=== PATIENT | female | born 1990 | race Caucasian/White ===

== ENCOUNTER 2021-11-18 07:28 | Inpatient (IN) ==
[2021-11-18] MEDS ORDERED: OXYTOCIN 30 UNITS/500 ML BAG IV PRN ×2 (07:44)
[2021-11-18 08:00] LABS: Hematocrit (blood only) 34.2 % (37-47); Hemoglobin 11.2 g/dL (12.0-16.0); Mean Corpuscular Hemoglobin 28.1 pg (25-34); Mean Corpuscular Hgb Conc 32.7 g/dL (32-36); Mean Corpuscular Volume 85.9 fL (80-100); Mean Platelet Volume 10.2 fL (7.4-10.4); Platelet Count 222 K/uL (130-400); RDW Coefficient of Variation 14.3 % (11.5-14.5); RDW Standard Deviation 44.4 fL (36.4-46.3); Red Blood Count 3.98 M/uL (4.2-5.4); White Blood Count 7.81 K/uL (4.8-10.8)
[2021-11-18] MEDS: LACTATED RINGER'S 1,000 ML IV PRN ×5 (08:39→20:47)
--- NOTE | 2021-11-18 09:25 | History & Physical Report ---
Date of Service November 18, 2021 Assessment & Plan (1) Encounter for induction of labor: Plan: 31-year-old w/ complicated by BMI >40, presenting to L&D at 40.2 WGA for IOL postdates . * GBS-, RI, Rh+ * Admit to L&D * NPO except sips and chips * Pitocin PRN * Pt. open to epidural * Maintenance IVF: Lactated Ringer's at 125 mL * Continuous electronic heart monitoring * Full Code * Anticipate Admission and Anticipated Discharge Date Admission Date: November 18, 2021 History of Present Illness Primary Care Provider: AYAD Lobato Flaca is a 31 y/o female primigravida currently at 40.1 WGA with an RICHIE 11/16/2021 as determined by LMP who is here for induction of labor. Her was complicated by obesity, with BMI >40 at start of . No contractions; + movement; no fluid loss; + bloody show (from catheter removal). Had regular appointments with OB. Labs: 11/18/2021 Blood type: A+ Antibody screen: Negative H.2 Hct: 34.2% WBC: 7.81 Plt: 222 Rubella: Immune RPR: Nonreactive Gonorrhea: Not detected Chlamydia: Not detected HIV: Negative HbSAg: Negative GBS: Negative Other screens: cff-DNA: Low risk for trisomies 13, 18, 21, monosomy X, or triploidy. Low risk for 22q11.2 deletion syndrome CF: Negative SMA: Negative Allergies Allergy/AdvReac Type Severity Reaction Status Date / Time albuterol Allergy Unknown Rash Verified 11/18/21 07:52 bupropion [From Wellbutrin] Allergy Unknown Unknown Verified 11/18/21 07:52 Home Medications Medication Instructions Recorded Confirmed Type escitalopram oxalate 10 mg tablet 10 mg PO DAILY 10/27/21 11/18/21 History (Lexapro) prenat.vits,evette,[id number] 1 tab PO DAILY 10/27/21 11/18/21 History cephalexin 500 mg capsule 500 mg PO BID 10 Days #20 cap 11/15/21 11/15/21 Rx Patient History Medical History Anxiety on lexapro Chronic upper back pain Depression Lexapr 10mg PO daily Endometriosis dx in 2013 Epistaxis History of tobacco use stopped smoking in March 2021 Mood disorder Morbid obesity due to excess calories Paronychia of left middle finger Tobacco use Surgical History (Updated 11/18/21 @ 07:51 by Laurie Rowland RN) H/O exploratory laparotomy 2013 and 2018- due to endometriosis Hx of tonsillectomy as child Lymphedema of upper extremity following lymphadenectomy right neck lymph nodes removed S/P appendectomy at age 20 [place] teeth extracted as teenager Family History Grandfather (Maternal) Leukemia Father Hyperlipemia Depression Mother Depression Grandmother (Maternal) Multiple sclerosis Other Polycythemia vera Denies family history of Ovarian cancer Breast cancer Colorectal cancer Social History Smoking Status: Former smoker Tobacco Type: E-cigarettes / Vaping Age Quit Using Tobacco: 30; Second Hand Exposure: No; Hx Alcohol Use: No Hx Substance Use: No Preferred Language: Latvian Communication Ability: Effective Visual Impairment: No Limitations Hearing Ability: Normal Squad Sergeant Required: No Beliefs That Will Affect Care: None marital status: marital status details: Gerardo Lares (30) [phone] Current Living Situation: Spouse Current Living Situation Comment: lives with spouse, cats-spouse changing litter current occupational status: employed 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 No acute distress. Cardiac: Regular rate and rhythm, no murmurs/rubs/gallops. Respiratory: Clear to auscultation bilaterally a/p, no wheezes/rales/rhonchi. No increased work of breathing. Symmetrical chest rise. No respiratory distress. Pelvic: Dilation 3 cm; Effacement 75%; Station -[address] Squires Lower Extremities: No lower extremity edema or swelling. No deep calf pain. Norma's negative bilaterally Baseline: 130 bpm Variability: Moderate Accelerations: 10+ x20 minutes Decelerations: None Results & Data ([facility]) Vital Signs (Past 12 Hours) Vital Signs Temp Pulse Resp BP 11/18/21 08:48 89 111/63 11/18/21 07:55 36.5 C 20 11/18/21 07:37 87 112/69 Supervising Physician Co-Signing Physician Notes Resident Physician Supervision Note: I interviewed and examined the patient. Discussed with Dr. Ortega and agree with findings and plan as documented in the note. Any exceptions or clarifications are listed here: 31 y/o G1 at 40 2/7 wga presents for eIOL. +FM and bloody discharge, denies LOF, VB. PNI: Obesity, anx depr. VSS, Fetus cat 1 - 130/mod/+accel/-decel, toco irreg ctx. 3/75/-2, ceph confirmed by BSUS. GBS neg. Will start pit, plan arom when able, epidural prn Documented By: Alona Squires MD Resident Activity Tracking Resident Involvement: Resident Care Provided Care Provided: Adult Hospital Medicine
[2021-11-18] MEDS: cephALEXin 500 MG CAP PO SCH ×2 (11:32→21:33)
[2021-11-18] MEDS ORDERED: ePHEDrine sulfate 50 MG/ML AMP ONE (13:12)
[2021-11-18] MEDS ORDERED: fentaNYL citrate 100 MCG/2 ML VIAL ONE ×2 (13:13→22:35)
[2021-11-18] MEDS ORDERED: BUPIVACAINE 0.25% 30 ML VIAL ONE (13:13)
[2021-11-18] MEDS ORDERED: SODIUM CHLORIDE 0.9% INJ 10 ML VIAL ONE (13:13)
[2021-11-18] MEDS ORDERED: fentaNYL 2MCG/ML ROPIVACAINE 1.25MG/ML 100 ML BAG EPI ONE (13:13)
--- NOTE | 2021-11-18 13:28 | Labor Progress Brief Note ---
Date of Service November 18, 2021 Subjective People starting to feel some ctx Assessment & Plan (1) Encounter for induction of labor: Plan: 31 y/o G1 at 40 2/7 wga presents for eIOL VSS Fetus cat 1 labor - pit at 14, pt desires epidural before I arom so will arrange for this GBS neg epidural prn Admission and Anticipated Discharge Date Admission Date: November 18, 2021 Physical Exam Genitourinary: Manual OB Exam: + cervical dilation (3-4), + cervical effacement 70% and + station -2 OB Exam Monitor Tracing: + external FHT monitor used, + external uterine monitor used (irreg) and + category I (130/mod/+accel/-decel) Results & Data ([facility]) Vital Signs (Past 12 Hours) Vital Signs Temp Pulse Resp BP 11/18/21 12:49 81 107/59 L 11/18/21 11:51 129 H 128/57 L 11/18/21 11:00 97.9 F 20 11/18/21 10:52 86 112/57 L 11/18/21 10:50 82 113/57 L 11/18/21 09:49 86 112/58 L 11/18/21 08:48 89 111/63 11/18/21 07:55 97.7 F 20 11/18/21 07:37 87 112/69 Coding Level of Care Code None Diagnoses Encounter for induction of labor Z34.90
--- NOTE | 2021-11-18 13:38 | Anesthesiology Consultation ---
Date of Service November 18, 2021 Assessment & Plan (1) Encounter for pre-operative examination: Chart Review Chart Review: Acceptable Risk for Surgery and Patient NOT seen in Pre Admission Testing Consults Requested none History Height/Weight Height: 5 ft 5 in Weight: 125.645 kg Allergies Allergy/AdvReac Type Severity Reaction Status Date / Time albuterol Allergy Unknown Rash Verified 11/18/21 07:52 bupropion [From Wellbutrin] Allergy Unknown Unknown Verified 11/18/21 07:52 Medications Home Medications Medication Instructions Recorded Confirmed Last Taken escitalopram oxalate 10 mg tablet 10 mg PO DAILY 10/27/21 11/18/21 11/17/21 21:00 (Lexapro) prenat.vits,evette,[id number] 1 tab PO DAILY 10/27/21 11/18/21 Unknown cephalexin 500 mg capsule 500 mg PO BID 10 Days #20 cap 11/15/21 11/15/21 11/17/21 12:00 Active Medications Generic Name Dose Route Start Last Admin Trade Name Freq PRN Reason Stop Dose Admin Cephalexin HCl 500 mg 11/18/21 11:15 11/18/21 11:32 Cephalexin 500 Mg Cap PO 11/25/21 11:14 500 mg BID BEKAH Administration Oxytocin 30 units in 500 mls @ 14 mls/hr 11/18/21 07:44 11/18/21 12:12 Pitocin IV 11/20/21 07:43 0.84 units/hr .Q24H PRN 14 mls/hr Labor Induction/Augmentation Titration Protocol 0.84 UNITS/HR Lactated Ringer's 1,000 mls @ 125 mls/hr 11/18/21 07:44 11/18/21 13:38 Lr IV 11/20/21 07:43 125 mls/hr .Q8H PRN Administration L&D Protocol Protocol NPO Date Last Intake of Fluids: 11/18/21 Time Last Intake of Fluids: 08:00 Date Last Intake of Solids: 11/18/21 Time Last Intake of Solids: 08:00 Past Medical History Medical History Anxiety on lexapro Chronic upper back pain Depression Lexapr 10mg PO daily Endometriosis dx in 2013 Epistaxis History of tobacco use stopped smoking in March 2021 Mood disorder Morbid obesity due to excess calories Paronychia of left middle finger Tobacco use Exercise / Class Metabolic Activity III < 4 Walking/Shop/Light housework Past Family History Family History Grandfather (Maternal) , 75 Leukemia Father Hyperlipemia Depression Mother Depression Grandmother (Maternal) Multiple sclerosis Other Polycythemia vera Denies family history of Ovarian cancer Breast cancer Colorectal cancer Past Surgical History Surgical History History of laparoscopy 2013 and 2018- endometriosis, lysis of adhesions Hx of tonsillectomy as child Lymphedema of upper extremity following lymphadenectomy right neck lymph nodes removed S/P appendectomy at age 20 [place] teeth extracted as teenager Social History Smoking Status: Former smoker tobacco type: e-cigarettes Hx Alcohol Use: No Alcohol type: wine Hx Substance Use: No substance use type: does not use Physical Exam Vital Signs Last Vital Signs Temp 36.6 C 11/18/21 11:00 Pulse 83 11/18/21 13:28 Resp 20 11/18/21 11:00 BP 107/59 L 11/18/21 12:49 Pulse Ox 100 11/18/21 13:28 Testing Laboratory Results 11/18/21 07:49 Blood Type A Positive 11/18/21 07:49 Antibody Screen NEGATIVE 11/18/21 07:49
[2021-11-18] MEDS ORDERED: NALBUPHINE HCL INJ 10 MG/ML AMP IV PRN (14:52)
[2021-11-18] MEDS ORDERED: ONDANSETRON INJ 2 MG/ML 2 ML VIAL IV PRN (14:52)
[2021-11-18] MEDS ORDERED: fentaNYL 2MCG/ML ROPIVACAINE 1.25MG/ML 100 ML BAG EPI PRN (14:52)
[2021-11-18] MEDS ORDERED: NALOXONE HCL 0.4 MG/1 ML VIAL/CARP IV PRN (14:52)
[2021-11-18] MEDS ORDERED: diphenhydrAMINE 50 MG/ML VIAL IV PRN (14:52)
[2021-11-18] MEDS ORDERED: NALOXONE HCL 1 MG in SODIUM CHLORIDE 0.9% 1000ML 1,000 ML IV PRN (14:52)
[2021-11-18] MEDS: ePHEDrine sulfate 50 MG/ML AMP IV PRN ×3 (15:17→21:30)
--- NOTE | 2021-11-18 15:26 | Labor Progress Brief Note ---
Date of Service November 18, [address] Assessment & Plan (1) Encounter for induction of labor: Plan: 31 y/o G1 at 40 2/7 wga presents for eIOL VSS Fetus cat 1 labor - pit at 16, now comfortable w/ epidural. Attempted arom however difficult to tell if completed as not much fluid, and while laying on back pt began feeling nauseous and decel began. FSE applied due to difficulty monitoring with repositioning, IVF, O2, pit d/c'd. Ephedrin also given due to hypotension, pt feels much better and tracing improved. Will allow to recover, and restart pit again, FSE now in place so likely some form of rupture was completed GBS neg epidural in place Admission and Anticipated Discharge Date Admission Date: November 18, 2021 Physical Exam Genitourinary: Manual OB Exam: + cervical dilation (3-4), + cervical efface ment 70% and + station -2 OB Exam Monitor Tracing: + external FHT monitor used, + external uterine monitor used (q4-6) and + category I (130/mod/+accel/- decel) Results & Data ([facility]) Vital Signs (Past 12 Hours) Vital Signs Temp Pulse Resp BP Pulse Ox 11/18/21 15:19 83 139/78 11/18/21 15:18 84 100 11/18/21 15:17 187 H 90/43 L 11/18/21 15:15 102 H 94 11/18/21 15:13 87 100 11/18/21 15:12 74 96/53 L 11/18/21 15:08 95 H 99 11/18/21 15:07 89 108/60 11/18/21 15:03 83 93 11/18/21 15:01 82 107/60 11/18/21 14:58 80 100 11/18/21 14:57 82 106/63 90 11/18/21 14:53 90 100 11/18/21 14:52 93 H 126/58 L 11/18/21 14:51 81 92 11/18/21 14:48 83 100 11/18/21 14:46 91 H 104/57 L 11/18/21 14:43 82 100 11/18/21 14:40 86 102/58 L 11/18/21 14:38 95 H 101/59 L 100 11/18/21 14:36 84 105/58 L 11/18/21 14:34 96 H 102/62 11/18/21 14:33 98 H 100 11/18/21 14:32 90 104/60 11/18/21 14:30 82 101/63 11/18/21 14:28 82 102/57 L 100 11/18/21 14:26 87 102/58 L 11/18/21 14:24 88 107/59 L 11/18/21 14:23 86 100 11/18/21 14:22 90 105/56 L 11/18/21 14:20 102 H 102/52 L 11/18/21 14:18 94 H 100 11/18/21 14:17 94 H 119/60 11/18/21 14:13 86 99 11/18/21 14:08 75 99 11/18/21 14:03 84 100 11/18/21 13:58 86 100 11/18/21 13:53 104 H 100 11/18/21 13:49 110 H 131/69 11/18/21 13:48 122 H 100 11/18/21 13:43 88 100 11/18/21 13:38 84 100 11/18/21 13:33 81 100 11/18/21 13:28 83 100 11/18/21 12:49 81 107/59 L 11/18/21 11:51 129 H 128/57 L 11/18/21 11:00 97.9 F 20 11/18/21 10:52 86 112/57 L 11/18/21 10:50 82 113/57 L 11/18/21 09:49 86 112/58 L 11/18/21 08:48 89 111/63 11/18/21 07:55 97.7 F 20 11/18/21 07:37 87 112/69 Coding Level of Care Code None Diagnoses Encounter for induction of labor Z34.90
--- NOTE | 2021-11-18 20:56 | Labor Progress Brief Note ---
Date of Service November 18, 2021 Subjective Comfortable w/ epidural, but does feel a bit of burning sensation below. Assessment & Plan (1) Encounter for induction of labor: Plan: 31 y/o G1 at 40 2/7 wga presents for eIOL VSS Fetus cat 1 labor - pit at 8, pit had to be d/c'd earlier however shortly after IV access was lost and IV team had to make multiple attempts to reobtain access before pit could be restarted. Following a decel during time of very active baby, baby was tachycardic but otherwise w/ mod variability, +accels and neg decels which made it difficult to titrate pit. Pt seems emotionally down, and says she feels like it. Feels like she is worried about labor progress at this point. Discussed w/ timing of having a few hours with pit completely off, we are essentially restarting so not surprising that not much progress has been made. She is also concerned that she will have to push even after getting to 10cm. Discussed understanding of her concerns and mental exhaustion, discussed the option for elective primary CS as well is always available. Discussed it is not uncommon to take time to get to active labor, her progress is not unexpected. She would like to see how it goes over the next few checks GBS neg epidural in place Admission and Anticipated Discharge Date Admission Date: November 18, 2021 Physical Exam Genitourinary: Manual OB Exam: + cervical dilation 4 cm, + cervical effacement 70% and + station -2 OB Exam Monitor Tracing: + scalp electrode used, + intra-uterine pressure catheter used (q3-6, inadequate) and + category I (150/mod/+accel/-decel) Results & Data ([facility]) Vital Signs (Past 12 Hours) Vital Signs Temp Pulse Resp BP Pulse Ox Pulse Ox 11/18/21 20:44 97 H 98 11/18/21 20:39 89 99 11/18/21 20:34 93 H 100 11/18/21 20:33 95 H 123/58 L 11/18/21 20:29 90 100 11/18/21 20:24 107 H 100 11/18/21 20:19 95 H 99 11/18/21 20:17 84 121/56 L 11/18/21 20:14 95 H 98 11/18/21 20:09 98 H 100 11/18/21 20:04 98 H 94 03/14/22 20:03 92 H 126/59 L 11/18/21 20:00 94 H 90 11/18/21 19:59 86 97 11/18/21 19:54 93 H 97 11/18/21 19:49 98 H 100 11/18/21 19:48 99 H 99/51 L 11/18/21 19:44 94 H 100 11/18/21 19:43 114 H 92 11/18/21 19:39 107 H 100 11/18/21 19:34 110 H 100 11/18/21 19:33 108 H 85 L 11/18/21 19:32 102 H 99/51 L 11/18/21 19:29 108 H 100 11/18/21 19:24 105 H 99 11/18/21 19:19 106 H 100 11/18/21 19:18 104 H 97/54 L 11/18/21 19:14 104 H 99 11/18/21 19:10 98.1 F 18 96 11/18/21 19:09 107 H 98 11/18/21 19:04 103 H 100 11/18/21 19:03 105 H 98/51 L 11/18/21 18:59 101 H 100 11/18/21 18:54 105 H 100 11/18/21 18:49 113 H 100 11/18/21 18:48 104 H 112/55 L 11/18/21 18:44 97 H 100 11/18/21 18:39 96 H 100 11/18/21 18:34 95 H 100 11/18/21 18:32 93 H 107/62 11/18/21 18:31 98.2 F 11/18/21 18:30 20 11/18/21 18:29 96 H 100 11/18/21 18:24 99 H 100 11/18/21 18:19 98 H 99 11/18/21 18:17 110 H 105/59 L 11/18/21 18:14 109 H 99 11/18/21 18:09 102 H 99 11/18/21 18:04 107 H 107/56 L 100 11/18/21 18:01 117 H 87 L 11/18/21 18:00 20 11/18/21 17:59 124 H 100 11/18/21 17:55 106 H 92 11/18/21 17:54 106 H 97 03/14/22 17:49 104 H 100 11/18/21 17:48 122 H 103/50 L 93 11/18/21 17:43 105 H 100 11/18/21 17:41 94 H 90 11/18/21 17:38 100 H 98 11/18/21 17:34 99 H 136/57 L 11/18/21 17:33 98 H 100 11/18/21 17:30 20 11/18/21 17:28 102 H 100 11/18/21 17:27 101 H 91 11/18/21 17:23 105 H 117/55 L 99 11/18/21 17:21 92 H 82/47 L 11/18/21 17:18 90 85/40 L 100 11/18/21 17:15 20 11/18/21 17:13 86 100 11/18/21 17:08 95 H 95/54 L 100 11/18/21 17:03 99 H 100 11/18/21 17:00 98.2 F 20 11/18/21 16:58 94 H 100 11/18/21 16:53 103 H 100 11/18/21 16:48 102 H 103/46 L 100 11/18/21 16:47 82 128/85 89 L 11/18/21 16:45 18 11/18/21 16:43 90 100 11/18/21 16:38 92 H 100 11/18/21 16:34 95 H 94 11/18/21 16:33 97 H 100 11/18/21 16:30 20 11/18/21 16:28 93 H 100 11/18/21 16:23 90 100 11/18/21 16:18 93 H 100 11/18/21 16:17 90 117/64 11/18/21 16:15 20 11/18/21 16:13 86 100 11/18/21 16:08 92 H 97 11/18/21 16:03 87 100 11/18/21 16:02 88 128/67 92 11/18/21 16:00 22 11/18/21 15:58 90 97 11/18/21 15:57 91 H 93 11/18/21 15:53 88 95 11/18/21 15:52 91 H 93 11/18/21 15:48 97 H 91 11/18/21 15:47 95 H 93 11/18/21 15:46 91 H 136/67 11/18/21 15:45 20 11/18/21 15:43 97 H 94 11/18/21 15:42 93 H 144/68 H 11/18/21 15:40 94 H 85 L 11/18/21 15:38 95 H 95 11/18/21 15:37 88 132/60 11/18/21 15:34 83 90 11/18/21 15:33 85 100 11/18/21 15:31 89 131/61 11/18/21 15:30 20 11/18/21 15:28 87 86 L 11/18/21 15:26 81 136/64 11/18/21 15:24 86 91 11/18/21 15:23 80 100 11/18/21 15:22 93 H 133/69 11/18/21 15:19 83 139/78 11/18/21 15:18 84 100 11/18/21 15:17 187 H 90/43 L 11/18/21 15:15 102 H 24 94 11/18/21 15:13 87 100 11/18/21 15:12 74 96/53 L 11/18/21 15:08 95 H 99 11/18/21 15:07 89 108/60 11/18/21 15:03 83 93 11/18/21 15:01 82 107/60 11/18/21 15:00 98.2 F 18 11/18/21 14:58 80 100 11/18/21 14:57 82 106/63 90 11/18/21 14:53 90 100 11/18/21 14:52 93 H 126/58 L 11/18/21 14:51 81 92 11/18/21 14:48 83 100 11/18/21 14:46 91 H 104/57 L 11/18/21 14:45 20 11/18/21 14:43 82 100 11/18/21 14:40 86 102/58 L 11/18/21 14:38 95 H 101/59 L 100 11/18/21 14:36 84 105/58 L 11/18/21 14:34 96 H 102/62 11/18/21 14:33 98 H 100 11/18/21 14:32 90 104/60 11/18/21 14:30 82 22 101/63 11/18/21 14:28 82 102/57 L 100 11/18/21 14:26 87 102/58 L 11/18/21 14:24 88 107/59 L 11/18/21 14:23 86 100 11/18/21 14:22 90 105/56 L 11/18/21 14:21 20 11/18/21 14:20 102 H 102/52 L 11/18/21 14:18 94 H 100 11/18/21 14:17 94 H 119/60 11/18/21 14:13 86 99 11/18/21 14:08 75 99 11/18/21 14:03 84 100 11/18/21 13:58 86 100 11/18/21 13:53 104 H 100 11/18/21 13:49 110 H 131/69 11/18/21 13:48 122 H 100 11/18/21 13:43 88 100 11/18/21 13:38 84 100 11/18/21 13:33 81 100 11/18/21 13:28 83 100 11/18/21 12:49 81 107/59 L 11/18/21 11:51 129 H 128/57 L 11/18/21 11:00 97.9 F 20 11/18/21 10:52 86 112/57 L 11/18/21 10:50 82 113/57 L 11/18/21 09:49 86 112/58 L Coding Level of Care Code None Diagnoses Encounter for induction of labor Z34.90
[2021-11-18] MEDS ORDERED: CITRIC ACID/SODIUM CITRATE 15 ML UDC PO STA (22:32)
[2021-11-18] MEDS ORDERED: AZITHROMYCIN 500 MG in DEXTROSE 5% 250 ML IV STA (22:32)
[2021-11-18] MEDS ORDERED: ONDANSETRON INJ 2 MG/ML 2 ML VIAL ONE (22:35)
[2021-11-18] MEDS ORDERED: PHENYLEPHRINE HCL 10 MG/ML VIAL ONE (22:35)
[2021-11-18] MEDS ORDERED: MoRPHine SULFATE PF 1 MG/ML 10 ML AMP/VIAL ONE (22:35)
--- NOTE | 2021-11-18 22:35 | Labor Progress Brief Note ---
Date of Service November 18, 2021 Subjective Pt and discussed that they would like to proceed with CS Assessment & Plan (1) Encounter for induction of labor: Plan: 31 y/o G1 at 40 2/7 wga presents for eIOL VSS Fetus cat 1 labor - pt and discussed and pt feels like she is already mentally and physically exhausted from the induction process. She also states that she knows her own body and is concerned about the ability to adequately/effectively push if she even gets to 10cm. She and her likely plan on only having one child as it took so long to even get this and so would like to proceed with elective CS. The typical/anticipated labor course for an elective induction was reviewed, her current progress is not really concerning at this time due to the lapse in pit during the loss of IV access. However she does not feel overly hopeful with the IV issues previously as well as the concerns about whether baby will have future decels and so does not want to continue. Procedure was reviewed as well as indications, risks, benefits, alternatives with risks including infection, bleeding, injury to adjacent structures (bowel, bladder, ureters, blood vessels, nerves, baby), possible need for blood transfusion and/or life saving hysterectomy, VTE. Discussed risk of prior scar tissue potentially making procedure more difficult as well. Consent reviewed in detail w/ pt and signed after all questions answered to her satisfaction. Anesthesia made aware, plan for ancef/azithro, type and screen Admission and Anticipated Discharge Date Admission Date: November 18, 2021 Physical Exam Genitourinary: OB Exam Monitor Tracing: + scalp electrode used, + intra- uterine pressure catheter used (q4-5) and + category I (150/mod/+accel/-decel) Results & Data ([facility]) Vital Signs (Past 12 Hours) Vital Signs Temp Pulse Resp BP Pulse Ox Pulse Ox 11/18/21 22:29 110 H 97 11/18/21 22:24 137 H 91 11/18/21 22:19 114 H 99 11/18/21 22:18 115 H 116/55 L 11/18/21 22:14 114 H 99 11/18/21 22:09 118 H 100 11/18/21 22:04 100 H 71 L 11/18/21 22:02 109 H 101/57 L 11/18/21 21:59 109 H 97 11/18/21 21:54 111 H 100 11/18/21 21:49 101 H 100 11/18/21 21:48 100 H 96/49 L 11/18/21 21:44 101 H 99 11/18/21 21:40 98.2 F 16 11/18/21 21:39 103 H 100 11/18/21 21:34 96 H 97/55 L 98 11/18/21 21:29 96 H 100 11/18/21 21:27 92 H 87/49 L 11/18/21 21:24 96 H 99 11/18/21 21:19 105 H 99 11/18/21 21:17 88 87/49 L 11/18/21 21:14 93 H 99 11/18/21 21:10 108 H 91/53 L 11/18/21 21:09 105 H 97 11/18/21 21:04 96 H 85/51 L 98 11/18/21 21:03 94 H 84/46 L 11/18/21 21:02 100 H 91/46 L 11/18/21 20:59 101 H 99 11/18/21 20:54 106 H 99 11/18/21 20:49 120 H 100 11/18/21 20:47 90 108/56 L 11/18/21 20:44 97 H 98 11/18/21 20:39 89 99 11/18/21 20:34 93 H 100 11/18/21 20:33 95 H 123/58 L 11/18/21 20:29 90 100 11/18/21 20:24 107 H 100 11/18/21 20:19 95 H 99 11/18/21 20:17 84 121/56 L 11/18/21 20:14 95 H 98 11/18/21 20:09 98 H 100 11/18/21 20:04 98 H 94 11/18/21 20:03 92 H 126/59 L 11/18/21 20:00 94 H 90 11/18/21 19:59 86 97 11/18/21 19:54 93 H 97 11/18/21 19:49 98 H 100 11/18/21 19:48 99 H 99/51 L 11/18/21 19:44 94 H 100 11/18/21 19:43 114 H 92 11/18/21 19:39 107 H 100 11/18/21 19:34 110 H 100 11/18/21 19:33 108 H 85 L 11/18/21 19:32 102 H 99/51 L 11/18/21 19:29 108 H 100 11/18/21 19:24 105 H 99 11/18/21 19:19 106 H 100 11/18/21 19:18 104 H 97/54 L 11/18/21 19:14 104 H 99 11/18/21 19:10 98.1 F 18 96 11/18/21 19:09 107 H 98 11/18/21 19:04 103 H 100 11/18/21 19:03 105 H 98/51 L 11/18/21 18:59 101 H 100 11/18/21 18:54 105 H 100 11/18/21 18:49 113 H 100 11/18/21 18:48 104 H 112/55 L 11/18/21 18:44 97 H 100 11/18/21 18:39 96 H 100 11/18/21 18:34 95 H 100 11/18/21 18:32 93 H 107/62 11/18/21 18:31 98.2 F 11/18/21 18:30 20 11/18/21 18:29 96 H 100 11/18/21 18:24 99 H 100 11/18/21 18:19 98 H 99 11/18/21 18:17 110 H 105/59 L 11/18/21 18:14 109 H 99 11/18/21 18:09 102 H 99 11/18/21 18:04 107 H 107/56 L 100 11/18/21 18:01 117 H 87 L 11/18/21 18:00 20 11/18/21 17:59 124 H 100 11/18/21 17:55 106 H 92 11/18/21 17:54 106 H 97 11/18/21 17:49 104 H 100 11/18/21 17:48 122 H 103/50 L 93 11/18/21 17:43 105 H 100 11/18/21 17:41 94 H 90 11/18/21 17:38 100 H 98 11/18/21 17:34 99 H 136/57 L 11/18/21 17:33 98 H 100 11/18/21 17:30 20 11/18/21 17:28 102 H 100 11/18/21 17:27 101 H 91 11/18/21 17:23 105 H 117/55 L 99 11/18/21 17:21 92 H 82/47 L 11/18/21 17:18 90 85/40 L 100 11/18/21 17:15 20 11/18/21 17:13 86 100 11/18/21 17:08 95 H 95/54 L 100 11/18/21 17:03 99 H 100 11/18/21 17:00 98.2 F 20 11/18/21 16:58 94 H 100 11/18/21 16:53 103 H 100 11/18/21 16:48 102 H 103/46 L 100 11/18/21 16:47 82 128/85 89 L 11/18/21 16:45 18 11/18/21 16:43 90 100 11/18/21 16:38 92 H 100 11/18/21 16:34 95 H 94 11/18/21 16:33 97 H 100 11/18/21 16:30 20 11/18/21 16:28 93 H 100 11/18/21 16:23 90 100 11/18/21 16:18 93 H 100 11/18/21 16:17 90 117/64 11/18/21 16:15 20 11/18/21 16:13 86 100 11/18/21 16:08 92 H 97 11/18/21 16:03 87 100 11/18/21 16:02 88 128/67 92 11/18/21 16:00 22 11/18/21 15:58 90 97 11/18/21 15:57 91 H 93 11/18/21 15:53 88 95 11/18/21 15:52 91 H 93 11/18/21 15:48 97 H 91 11/18/21 15:47 95 H 93 11/18/21 15:46 91 H 136/67 11/18/21 15:45 20 11/18/21 15:43 97 H 94 11/18/21 15:42 93 H 144/68 H 11/18/21 15:40 94 H 85 L 11/18/21 15:38 95 H 95 11/18/21 15:37 88 132/60 11/18/21 15:34 83 90 11/18/21 15:33 85 100 11/18/21 15:31 89 131/61 03/14/22 15:30 20 11/18/21 15:28 87 86 L 11/18/21 15:26 81 136/64 11/18/21 15:24 86 91 11/18/21 15:23 80 100 11/18/21 15:22 93 H 133/69 11/18/21 15:19 83 139/78 11/18/21 15:18 84 100 11/18/21 15:17 187 H 90/43 L 11/18/21 15:15 102 H 24 94 11/18/21 15:13 87 100 11/18/21 15:12 74 96/53 L 11/18/21 15:08 95 H 99 11/18/21 15:07 89 108/60 11/18/21 15:03 83 93 11/18/21 15:01 82 107/60 11/18/21 15:00 98.2 F 18 11/18/21 14:58 80 100 11/18/21 14:57 82 106/63 90 11/18/21 14:53 90 100 11/18/21 14:52 93 H 126/58 L 11/18/21 14:51 81 92 11/18/21 14:48 83 100 11/18/21 14:46 91 H 104/57 L 11/18/21 14:45 20 11/18/21 14:43 82 100 11/18/21 14:40 86 102/58 L 11/18/21 14:38 95 H 101/59 L 100 11/18/21 14:36 84 105/58 L 11/18/21 14:34 96 H 102/62 11/18/21 14:33 98 H 100 11/18/21 14:32 90 104/60 11/18/21 14:30 82 22 101/63 11/18/21 14:28 82 102/57 L 100 11/18/21 14:26 87 102/58 L 11/18/21 14:24 88 107/59 L 11/18/21 14:23 86 100 11/18/21 14:22 90 105/56 L 11/18/21 14:21 20 11/18/21 14:20 102 H 102/52 L 11/18/21 14:18 94 H 100 11/18/21 14:17 94 H 119/60 11/18/21 14:13 86 99 11/18/21 14:08 75 99 11/18/21 14:03 84 100 11/18/21 13:58 86 100 11/18/21 13:53 104 H 100 11/18/21 13:49 110 H 131/69 11/18/21 13:48 122 H 100 11/18/21 13:43 88 100 11/18/21 13:38 84 100 11/18/21 13:33 81 100 11/18/21 13:28 83 100 11/18/21 12:49 81 107/59 L 11/18/21 11:51 129 H 128/57 L 11/18/21 11:00 97.9 F 20 11/18/21 10:52 86 112/57 L 11/18/21 10:50 82 113/57 L Coding Level of Care Code None Diagnoses Encounter for induction of labor Z34.90
[2021-11-19] MEDS ORDERED: OXYTOCIN 10 UNITS/ML 10ML VIAL ONE (00:28)
[2021-11-19] MEDS ORDERED: PROMETHAZINE HCL 25 MG in SODIUM CHLORIDE 0.9% 50 ML IV PRN ×3 (00:54→18:55)
[2021-11-19] MEDS ORDERED: ePHEDrine sulfate 50 MG/ML AMP IV PRN (00:54)
[2021-11-19] MEDS ORDERED: LACTATED RINGER'S 500 ML IV PRN (00:54)
[2021-11-19] MEDS ORDERED: NALOXONE HCL 0.08 MG in SYRINGE 1.8 ML IV PRN (00:54)
[2021-11-19] MEDS ORDERED: MoRPHine SULFATE PF 1 MG/ML 10 ML AMP/VIAL INT SPINAL ONE (00:54)
[2021-11-19] MEDS ORDERED: ACETAMINOPHEN 1000 MG/100 ML IV IV PRN (00:54)
[2021-11-19] MEDS ORDERED: ONDANSETRON INJ 2 MG/ML 2 ML VIAL IV PRN ×2 (00:54→18:55)
[2021-11-19] MEDS ORDERED: HYDROmorphone INJ 0.5 MG/0.5 ML SYR IV PRN (00:54)
[2021-11-19] MEDS ORDERED: NALOXONE HCL 1 MG in SODIUM CHLORIDE 0.9% 1000ML 1,000 ML IV PRN (00:54)
[2021-11-19] MEDS ORDERED: NALOXONE HCL 0.4 MG/1 ML VIAL/CARP IV PRN (00:54)
[2021-11-19] MEDS ORDERED: KETOROLAC 30 MG/ML VIAL IV PRN ×2 (00:54→18:55)
[2021-11-19] MEDS ORDERED: NALBUPHINE HCL INJ 10 MG/ML AMP IV PRN (00:54)
[2021-11-19] MEDS ORDERED: diphenhydrAMINE 50 MG/ML VIAL IV PRN ×2 (00:54→18:55)
[2021-11-19] MEDS ORDERED: oxyCODONE/ACETAMINOPHEN 5mg/325mg TAB PO PRN (00:56)
[2021-11-19] MEDS ORDERED: DIPHTHERIA/TETANUS/PERTUSSIS 0.5 ML SYR/VIAL IM ONE (00:56)
[2021-11-19] MEDS ORDERED: SENNA 8.6 MG TAB PO PRN (00:56)
[2021-11-19] MEDS ORDERED: BENZOCAINE 20% AER SPR 82.5 GM CAN EXT PRN (00:56)
[2021-11-19] MEDS ORDERED: HYDROCORTISONE ACETATE 25 MG SUPP PR PRN (00:56)
[2021-11-19] MEDS ORDERED: MAGNESIUM HYDROXIDE SUSP 30 ML UDC PO PRN (00:56)
--- NOTE | 2021-11-19 00:59 | Anesthesia Procedure Note ---
Date of Service November 19, 2021 Anesthesia Post Epidural Note Vital Signs Vital Signs: Temp Pulse Resp BP Pulse Ox 36.8 C 95 H 16 117/52 L 90 11/18/21 21:40 11/19/21 00:58 11/18/21 22:00 11/19/21 00:45 11/19/21 00:58 Notes Mental Status: alert / awake / arousable and participated in evaluation Nausea / Vomiting: adequately controlled Pain: adequately controlled Airway Patency, RR, SpO2: stable & adequate BP & HR: stable & adequate Hydration State: stable & adequate Neuraxial Anesthesia: was administered and sensory block is resolving Anesthetic Complications: no major complications apparent and Pt Satisfied with anesthetic care Epidural: Removed without complications and With tip intact Notes: epidural pulled prior to spinal placement in the operating room.
--- NOTE | 2021-11-19 00:59 | Operative Report ---
PG Post Operative Report Pre & Post Diagnosis Operation Date: 11/18/21 23:30 Pre-Op Diagnosis: 1. Single IUP at 40.2 weeks 2. BMI 46 3. Elective ceasarean section Post-Op Diagnosis: 1. Same 2. Delivery of live female child at 2352 I identified the patient and participated in the time-out.: Yes Procedure Operation Date: 11/18/21 23:30 Actual Procedures p Primary Low Transverse Section in - Alona Squires MD Surgeon Alona Squires MD Shredded Filler Hopper Feeder ST Simran Estimated Blood Loss 700 Findings Consistent with Post-Op Diagnosis Filmy peritoneal adhesions noted on entry into abdomen. Normal uterus, bilateral fallopian tubes, ovaries. Viable female weighing 7lbs 14oz with APGARs of 8 and 9 Fluids 650cc crystalloid, 100cc UOP by lynn catheter Specimens Cord blood Drains Lynn Anesthesia Type Spinal Complications none Disposition Accompanied Patient To Recovery: Yes Disposition: L&D Indications 31 y/o G1 at 40 2/7 wga presented this morning for elective induction of labor. She had received lynn bulb the evening prior which promptly fell out. On arrival this morning, she was 3cm. She was started on pitocin and received an epidural for pain control. She then underwent AROM however shortly after had decel that required pit discontinuation. After appropriate resolution, pit was planned to restart however IV access was lost and so this was delayed. Upon obtaining IV access again, pitocin was started. FSE and IUPC were placed for more accurate monitoring. This evening, pt noted that she was feeling discouraged regarding induction process. She was counseled regarding options, see note for details, and ultimately she and her opted to proceed with CS. Description of Procedure The patient was taken to the operating room after consents were ensured. The patient was properly identified. Spinal anesthesia was obtained without difficulty. The patient was placed in a dorsal supine position with left lateral tilt, then prepped and draped in normal sterile fashion. Surgical time out was performed. Antibiotics were given for prophylaxis. Anesthesia was tested to ensure adequate surgical levels. Pfannenstiel skin incision was performed and carried down to the underlying fascia. The fascia was then nicked in the midline and extended laterally with pickups and Gallego scissors. Superior portion of the fascia was grasped with Kochers x2 and elevated off the underlying rectus muscles using blunt dissection. Inferior portion of the fascia was then grasped with Oral clamps x2 and also elevated off the underlying muscles with blunt dissection. Midline was identified. The peritoneum was then entered and extended to provide adequate room for delivery of baby. The hand was inserted into the abdomen, filmy adhesions were noted and bluntly lysed. Bladder blade was inserted, bladder flap was created in the usual fashion. A low transverse uterine incision was made in the uterus and extended bluntly in a superior to inferior fashion. Amniotomy was made with clear fluid at the time of rupture. head was grasped and elevated through the hysterotomy in an atraumatic fashion. The baby delivered in SENDY position, no nuchal cord. Remainder of the body delivered without incident. Nose and mouth were bulb suctioned on the surgical field. The cord was double clamped and cut, baby was handed off to awaiting pediatrics staff. Cord segment and blood were obtained. Placenta was then expressed from the uterus. The uterus was exteriorized. Several passes were made inside the uterus to remove the remaining membranes. Attention was then turned to the hysterotomy, which was then closed with a running locked suture of 0 Vicryl on a CTX needle. An imbricating layer was then performed using 0-Monocryl. There was noted to be good hemostasis. The posterior cul-de-sac was then inspected and cleaned of clot and debris. The hysterotomy was again inspected and noted to be hemostatic. The uterus was returned to the abdomen. The right and left pericolic gutters were cleaned of all clot and debris. The hysterotomy was again noted to be hemostatic. Space of Retzius was noted to be hemostatic. The fascia was then closed with a running hwang ture of 0 Vicryl on a CT1 needle. Subcutaneous tissue was copiously irrigated and noted to be hemostatic. Subcutaneous tissue was re-approximated using 2-0 plain gut. The skin was then closed with a running suture of 3-0 Monocryl in a subcuticular fashion. At termination of the procedure, the fundal pressure was applied and a moderate amount of lochia was expressed. Pressure dressing was applied to the patient. She tolerated the procedure well. All sponge, needle, instrument counts were correct x 2. I attest to the content of the Intraoperative Record and any orders documented therein. Any exceptions are noted below. OB Procedure Charges 99433
[2021-11-19] MEDS ORDERED: OXYTOCIN 20 UNITS in LACTATED RINGER'S 1,000 ML IV SCH (01:00)
[2021-11-19] MEDS ORDERED: SODIUM CHLORIDE 0.9% 1000ML 1,000 ML IV SCH (01:00)
[2021-11-19] MEDS ORDERED: DC INTRASPINAL MORPHINE SCH (01:00)
[2021-11-19] MEDS ORDERED: NO NARCOTICS OR SEDATIVES SCH (01:00)
--- NOTE | 2021-11-19 01:04 | Anesthesiology Progress Note ---
Date of Service November 19, 2021 Anesthesia Post Procedure Vital Signs Vital Signs: Temp Pulse Resp BP Pulse Ox Pulse Ox 11/19/21 00:58 96 H 100 11/19/21 00:53 91 H 98 11/19/21 00:51 95 H 90 11/19/21 00:48 97 H 100 11/19/21 00:45 94 H 117/52 L 89 L 11/19/21 00:43 99 H 100 11/18/21 23:04 149 H 100 11/18/21 23:02 125 H 121/64 11/18/21 22:59 116 H 77 L 11/18/21 22:54 111 H 100 11/18/21 22:49 117 H 99 11/18/21 22:47 120 H 119/59 L 11/18/21 22:44 114 H 100 11/18/21 22:39 118 H 100 11/18/21 22:34 123 H 100 11/18/21 22:33 118 H 131/68 11/18/21 22:29 110 H 97 11/18/21 22:24 137 H 91 11/18/21 22:19 114 H 99 11/18/21 22:18 115 H 116/55 L 11/18/21 22:14 114 H 99 11/18/21 22:09 118 H 100 11/18/21 22:04 100 H 71 L 11/18/21 22:02 109 H 101/57 L 11/18/21 22:00 16 11/18/21 21:59 109 H 97 11/18/21 21:54 111 H 100 11/18/21 21:49 101 H 100 11/18/21 21:48 100 H 96/49 L 11/18/21 21:44 101 H 99 11/18/21 21:40 36.8 C 16 11/18/21 21:39 103 H 100 11/18/21 21:34 96 H 97/55 L 98 11/18/21 21:29 96 H 100 11/18/21 21:27 92 H 87/49 L 11/18/21 21:24 96 H 99 11/18/21 21:19 105 H 99 11/18/21 21:17 88 87/49 L 11/18/21 21:14 93 H 99 11/18/21 21:10 108 H 91/53 L 11/18/21 21:09 105 H 97 11/18/21 21:04 96 H 85/51 L 98 11/18/21 21:03 94 H 84/46 L 11/18/21 21:02 100 H 91/46 L 11/18/21 20:59 101 H 99 11/18/21 20:54 106 H 99 11/18/21 20:49 120 H 100 11/18/21 20:47 90 108/56 L 11/18/21 20:44 97 H 98 11/18/21 20:39 89 99 11/18/21 20:34 93 H 100 11/18/21 20:33 95 H 123/58 L 11/18/21 20:29 90 100 11/18/21 20:24 107 H 100 11/18/21 20:19 95 H 99 11/18/21 20:17 84 121/56 L 11/18/21 20:14 95 H 98 11/18/21 20:09 98 H 100 11/18/21 20:04 98 H 94 11/18/21 20:03 92 H 126/59 L 11/18/21 20:00 94 H 90 11/18/21 19:59 86 97 11/18/21 19:54 93 H 97 11/18/21 19:49 98 H 100 11/18/21 19:48 99 H 99/51 L 11/18/21 19:44 94 H 100 11/18/21 19:43 114 H 92 11/18/21 19:39 107 H 100 11/18/21 19:34 110 H 100 11/18/21 19:33 108 H 85 L 11/18/21 19:32 102 H 99/51 L 11/18/21 19:29 108 H 100 11/18/21 19:24 105 H 99 11/18/21 19:19 106 H 100 11/18/21 19:18 104 H 97/54 L 11/18/21 19:14 104 H 99 11/18/21 19:10 36.7 C 18 96 11/18/21 19:09 107 H 98 11/18/21 19:04 103 H 100 11/18/21 19:03 105 H 98/51 L 11/18/21 18:59 101 H 100 11/18/21 18:54 105 H 100 11/18/21 18:49 113 H 100 11/18/21 18:48 104 H 112/55 L 11/18/21 18:44 97 H 100 11/18/21 18:39 96 H 100 11/18/21 18:34 95 H 100 11/18/21 18:32 93 H 107/62 11/18/21 18:31 36.8 C 11/18/21 18:30 20 11/18/21 18:29 96 H 100 11/18/21 18:24 99 H 100 11/18/21 18:19 98 H 99 11/18/21 18:17 110 H 105/59 L 11/18/21 18:14 109 H 99 11/18/21 18:09 102 H 99 11/18/21 18:04 107 H 107/56 L 100 11/18/21 18:01 117 H 87 L 11/18/21 18:00 20 11/18/21 17:59 124 H 100 11/18/21 17:55 106 H 92 11/18/21 17:54 106 H 97 11/18/21 17:49 104 H 100 11/18/21 17:48 122 H 103/50 L 93 11/18/21 17:43 105 H 100 11/18/21 17:41 94 H 90 11/18/21 17:38 100 H 98 11/18/21 17:34 99 H 136/57 L 11/18/21 17:33 98 H 100 11/18/21 17:30 20 11/18/21 17:28 102 H 100 11/18/21 17:27 101 H 91 11/18/21 17:23 105 H 117/55 L 99 11/18/21 17:21 92 H 82/47 L 11/18/21 17:18 90 85/40 L 100 11/18/21 17:15 20 11/18/21 17:13 86 100 11/18/21 17:08 95 H 95/54 L 100 11/18/21 17:03 99 H 100 11/18/21 17:00 36.8 C 20 11/18/21 16:58 94 H 100 11/18/21 16:53 103 H 100 11/18/21 16:48 102 H 103/46 L 100 11/18/21 16:47 82 128/85 89 L 11/18/21 16:45 18 11/18/21 16:43 90 100 11/18/21 16:38 92 H 100 11/18/21 16:34 95 H 94 11/18/21 16:33 97 H 100 11/18/21 16:30 20 11/18/21 16:28 93 H 100 11/18/21 16:23 90 100 11/18/21 16:18 93 H 100 11/18/21 16:17 90 117/64 11/18/21 16:15 20 11/18/21 16:13 86 100 11/18/21 16:08 92 H 97 11/18/21 16:03 87 100 11/18/21 16:02 88 128/67 92 11/18/21 16:00 22 11/18/21 15:58 90 97 11/18/21 15:57 91 H 93 11/18/21 15:53 88 95 11/18/21 15:52 91 H 93 11/18/21 15:48 97 H 91 11/18/21 15:47 95 H 93 11/18/21 15:46 91 H 136/67 11/18/21 15:45 20 11/18/21 15:43 97 H 94 11/18/21 15:42 93 H 144/68 H 11/18/21 15:40 94 H 85 L 11/18/21 15:38 95 H 95 11/18/21 15:37 88 132/60 11/18/21 15:34 83 90 11/18/21 15:33 85 100 11/18/21 15:31 89 131/61 11/18/21 15:30 20 11/18/21 15:28 87 86 L 11/18/21 15:26 81 136/64 11/18/21 15:24 86 91 11/18/21 15:23 80 100 11/18/21 15:22 93 H 133/69 11/18/21 15:19 83 139/78 11/18/21 15:18 84 100 11/18/21 15:17 187 H 90/43 L 11/18/21 15:15 102 H 24 94 11/18/21 15:13 87 100 11/18/21 15:12 74 96/53 L 11/18/21 15:08 95 H 99 11/18/21 15:07 89 108/60 11/18/21 15:03 83 93 11/18/21 15:01 82 107/60 11/18/21 15:00 36.8 C 18 11/18/21 14:58 80 100 11/18/21 14:57 82 106/63 90 11/18/21 14:53 90 100 11/18/21 14:52 93 H 126/58 L 11/18/21 14:51 81 92 11/18/21 14:48 83 100 11/18/21 14:46 91 H 104/57 L 11/18/21 14:45 20 11/18/21 14:43 82 100 11/18/21 14:40 86 102/58 L 11/18/21 14:38 95 H 101/59 L 100 11/18/21 14:36 84 105/58 L 11/18/21 14:34 96 H 102/62 11/18/21 14:33 98 H 100 11/18/21 14:32 90 104/60 11/18/21 14:30 82 22 101/63 11/18/21 14:28 82 102/57 L 100 11/18/21 14:26 87 102/58 L 11/18/21 14:24 88 107/59 L 11/18/21 14:23 86 100 11/18/21 14:22 90 105/56 L 11/18/21 14:21 20 11/18/21 14:20 102 H 102/52 L 11/18/21 14:18 94 H 100 11/18/21 14:17 94 H 119/60 11/18/21 14:13 86 99 11/18/21 14:08 75 99 11/18/21 14:03 84 100 11/18/21 13:58 86 100 11/18/21 13:53 104 H 100 11/18/21 13:49 110 H 131/69 11/18/21 13:48 122 H 100 11/18/21 13:43 88 100 11/18/21 13:38 84 100 11/18/21 13:33 81 100 11/18/21 13:28 83 100 11/18/21 12:49 81 107/59 L 11/18/21 11:51 129 H 128/57 L 11/18/21 11:00 36.6 C 20 11/18/21 10:52 86 112/57 L 11/18/21 10:50 82 113/57 L 11/18/21 09:49 86 112/58 L 11/18/21 08:48 89 111/63 11/18/21 07:55 36.5 C 20 11/18/21 07:37 87 112/69 Transfer of Care Handoff Completed per policy Notes Mental Status: alert / awake / arousable and participated in evaluation Nausea / Vomiting: adequately controlled Pain: adequately controlled Airway Patency, RR, SpO2: stable & adequate BP & HR: stable & adequate Hydration State: stable & adequate Neuraxial Anesthesia: was administered and sensory block is resolving Anesthetic Complications: no major complications apparent and Pt Satisfied with anesthetic care
--- NOTE | 2021-11-19 07:35 | Obstetrical Progress Note ---
Date of Service <Markel Ortega MD - Last Filed: 11/19/21 07:35> November 19, 2021 Assessment & Plan <Markel Ortega MD - Last Filed: 11/19/21 07:35> (1) Encounter for care and examination after delivery: POD 1: stable, routine postoperative management * patient voiding, ambulating without difficulty * pain well controlled on analgesia * tolerating regular diet * * anticipate d/c tomorrow <Alona Squires MD - Last Filed: 11/19/21 08:18> (1) Encounter for care and examination after delivery: Subjective <Markel Ortega MD - Last Filed: 11/19/21 07:35> Post Flaca is a 31 y/o female primigravida who is postop day 1 following at 40.2 WGA. She reports feeling well overall this morning. Mild abdominal cramping pain well managed on analgesics. Voiding into Lynn catheter at present. Tolerating meals overnight and able to ambulate some. Has some persistent lochia with some improvement this morning. Currently breast feeding bottle supplementation. Review of Systems Denies fever, chills, sweats Denies shortness of breath, difficulty breathing, chest pain, palpitations, c hest pressure. Denies breast pain. Denies dysuria. Denies headache or changes in vision. Physical Exam <Markel Ortega MD - Last Filed: 11/19/21 07:35> General: Alert, oriented. No acute distress. Cardiac: Regular rate and rhythm, no murmurs/rubs/gallops. Respiratory: Clear to auscultation bilaterally a/p, no wheezes/rales/rhonchi. No increased work of breathing. Symmetrical chest rise. No respiratory distress. Abdomen: Soft, nontender, nondistended. Bowel sounds present. Uterus: Uterine fundus firm, palpable 2 cm below umbilicus. Surgical scar clean and healing well. Lower Extremities: No lower extremity edema or swelling. No deep calf pain. Norma's negative bilaterally. Results & Data ([facility]) <Markel Ortega MD - Last Filed: 11/19/21 07:35> Vital Signs (Past 12 Hours) Vital Signs Temp Pulse Pulse Resp BP BP Pulse Ox 11/19/21 06:05 18 99 11/19/21 05:25 18 99 11/19/21 04:00 18 98 11/19/21 03:30 36.7 C 84 18 101/67 98 11/19/21 03:05 85 98 11/19/21 03:00 85 98 11/19/21 02:59 77 98/53 L 11/19/21 02:55 36.6 C 97 H 16 98 11/19/21 02:51 103 H 94 11/19/21 02:50 104 H 97 11/19/21 02:46 99 H 93 11/19/21 02:44 104 H 99 11/19/21 02:39 95 H 98 11/19/21 02:34 87 98 11/19/21 02:29 88 114/58 L 98 11/19/21 02:25 16 11/19/21 02:24 85 98 11/19/21 02:19 86 99 11/19/21 02:14 88 98 11/19/21 02:09 96 H 98 11/19/21 02:04 88 91 11/19/21 01:59 82 116/61 100 11/19/21 01:55 36.7 C 16 11/19/21 01:54 94 H 100 11/19/21 01:53 101 H 94 11/19/21 01:49 89 100 11/19/21 01:48 16 11/19/21 01:45 109 H 90 11/19/21 01:44 98 H 98 11/19/21 01:39 86 91 11/19/21 01:38 81 100 11/19/21 01:35 16 11/19/21 01:33 99 H 98 11/19/21 01:30 93 H 111/55 L 11/19/21 01:28 99 H 99 11/19/21 01:25 16 11/19/21 01:23 102 H 96 11/19/21 01:18 106 H 98 11/19/21 01:17 105 H 91 11/19/21 01:16 107 H 131/55 L 11/19/21 01:15 16 11/19/21 01:13 98 H 100 11/19/21 01:08 103 H 99 11/19/21 01:05 16 11/19/21 01:04 105 H 94 11/19/21 01:03 104 H 100 11/19/21 00:58 96 H 100 11/19/21 00:55 36.8 C 16 11/19/21 00:53 91 H 98 11/19/21 00:51 95 H 90 11/19/21 00:48 97 H 100 11/19/21 00:45 94 H 117/52 L 89 L 11/19/21 00:43 99 H 100 11/18/21 23:04 149 H 100 11/18/21 23:02 125 H 121/64 11/18/21 22:59 116 H 77 L 11/18/21 22:54 111 H 100 11/18/21 22:49 117 H 99 11/18/21 22:47 120 H 119/59 L 11/18/21 22:44 114 H 100 11/18/21 22:39 118 H 100 11/18/21 22:34 123 H 100 11/18/21 22:33 118 H 131/68 11/18/21 22:29 110 H 97 11/18/21 22:24 137 H 91 11/18/21 22:19 114 H 99 11/18/21 22:18 115 H 116/55 L 11/18/21 22:14 114 H 99 11/18/21 22:09 118 H 100 11/18/21 22:04 100 H 71 L 11/18/21 22:02 109 H 101/57 L 11/18/21 22:00 16 11/18/21 21:59 109 H 97 11/18/21 21:54 111 H 100 11/18/21 21:49 101 H 100 11/18/21 21:48 100 H 96/49 L 11/18/21 21:44 101 H 99 11/18/21 21:40 36.8 C 16 11/18/21 21:39 103 H 100 11/18/21 21:34 96 H 97/55 L 98 11/18/21 21:29 96 H 100 11/18/21 21:27 92 H 87/49 L 11/18/21 21:24 96 H 99 11/18/21 21:19 105 H 99 11/18/21 21:17 88 87/49 L 11/18/21 21:14 93 H 99 11/18/21 21:10 108 H 91/53 L 11/18/21 21:09 105 H 97 11/18/21 21:04 96 H 85/51 L 98 11/18/21 21:03 94 H 84/46 L 11/18/21 21:02 100 H 91/46 L 11/18/21 20:59 101 H 99 11/18/21 20:54 106 H 99 11/18/21 20:49 120 H 100 11/18/21 20:47 90 108/56 L 11/18/21 20:44 97 H 98 11/18/21 20:39 89 99 11/18/21 20:34 93 H 100 11/18/21 20:33 95 H 123/58 L 11/18/21 20:29 90 100 11/18/21 20:24 107 H 100 11/18/21 20:19 95 H 99 11/18/21 20:17 84 121/56 L 11/18/21 20:14 95 H 98 11/18/21 20:09 98 H 100 11/18/21 20:04 98 H 94 11/18/21 20:03 92 H 126/59 L 11/18/21 20:00 94 H 90 11/18/21 19:59 86 97 11/18/21 19:54 93 H 97 11/18/21 19:49 98 H 100 11/18/21 19:48 99 H 99/51 L 11/18/21 19:44 94 H 100 11/18/21 19:43 114 H 92 11/18/21 19:39 107 H 100 11/18/21 19:34 110 H 100 11/18/21 19:33 108 H 85 L 11/18/21 19:32 102 H 99/51 L 11/18/21 19:29 108 H 100 11/18/21 19:24 105 H 99 <Alona Squires MD - Last Filed: 11/19/21 08:18> Co-Signing Physician Notes Resident Physician Supervision Note: I interviewed and examined the patient. Discussed with Dr. Ortega and agree with findings and plan as documented in the note. Any exceptions or clarifications are listed here: POD1 s/p elective pLTCS, doing well. VSS, exam benign and wnl, dressing c/d/i. Will remove lynn later today, enc ambulation, take dressing off in shower. Continue routine pp care Documented By: Alona Squires MD Resident Activity Tracking <Markel Ortega MD - Last Filed: 11/19/21 07:35> Resident Involvement: Resident Care Provided Care Provided: Adult Hospital Medicine
[2021-11-19] MEDS: DOCUSATE SODIUM 100 MG CAP PO SCH ×2 (08:46→21:46)
[2021-11-19] MEDS: SIMETHICONE 80 MG CHEW PO SCH ×3 (08:46→21:46)
[2021-11-19] MEDS: PRENATAL VITAMIN 1 TAB PO SCH (08:47)
[2021-11-19] MEDS: FERROUS SULFATE 325 MG TAB PO SCH (08:47)
[2021-11-19] MEDS: cephALEXin 500 MG CAP PO SCH ×2 (08:48→21:46)
[2021-11-19] MEDS: ESCITALOPRAM OXALATE 10 MG TAB PO SCH (08:50)
[2021-11-19] MEDS: IBUPROFEN 600 MG TAB PO PRN ×4 (08:55→23:28)
[2021-11-19 09:16] LABS: Eosinophils # (auto) 0.01 K/uL (0-0.5); Eosinophils % (auto) 0.1 %; Hematocrit (blood only) 27.2 % (37-47); Hemoglobin 8.8 g/dL (12.0-16.0); Immature Granulocytes # (auto) 0.02 K/uL (0.00-0.02); Immature Granulocytes % (auto) 0.2 %; Lymphocytes # (auto) 1.33 K/uL (1.2-3.4); Lymphocytes % (auto) 13.7 %; Mean Corpuscular Hemoglobin 27.8 pg (25-34); Mean Corpuscular Hgb Conc 32.4 g/dL (32-36); Mean Corpuscular Volume 85.8 fL (80-100); Mean Platelet Volume 10.1 fL (7.4-10.4); Monocytes # (auto) 0.55 K/uL (0.11-0.59); Monocytes % (auto) 5.7 %; Neutrophils # (auto) 7.77 K/uL (1.4-6.5); Neutrophils % (auto) 80.3 %; Platelet Count 201 K/uL (130-400); RDW Coefficient of Variation 14.6 % (11.5-14.5); RDW Standard Deviation 45.4 fL (36.4-46.3); Red Blood Count 3.17 M/uL (4.2-5.4); White Blood Count 9.68 K/uL (4.8-10.8)
[2021-11-19] MEDS ORDERED: ACETAMINOPHEN 325 MG TAB PO PRN (09:22)
[2021-11-19] MEDS: LACTATED RINGER'S 1,000 ML IV SCH ×2 (09:31→12:49)
[2021-11-19] MEDS: oxyCODONE/ACETAMINOPHEN 5mg/325mg TAB PO PRN ×2 (18:08→23:28)
[2021-11-19] MEDS ORDERED: diphenhydrAMINE Capsule 25 MG CAP PO PRN (18:55)
[2021-11-20] MEDS: IBUPROFEN 600 MG TAB PO PRN ×5 (04:47→20:08)
[2021-11-20] MEDS: oxyCODONE/ACETAMINOPHEN 5mg/325mg TAB PO PRN ×5 (04:48→20:08)
--- NOTE | 2021-11-20 05:50 | Obstetrical Progress Note ---
Date of Service November 20, 2021 Assessment & Plan (1) Encounter for care and examination after delivery: stable, routine pp care. hgb yest noted, repeat this am. no evidence of active blood loss. breast/rh pos/ri. Day #:: 2 Subjective Ambulation: ambulating normally Voiding: no voiding problems Passing Gas:: Yes Diet Tolerance:: regular diet Lochia:: Small Feeding Type:: breast feeding denies pain issues when using pain meds which helps. pumping now and using some formula at times but motivated to cont to try to nurse Constitutional: + as per Subjective / HPI Physical Exam Constitutional WD/WN, vitals as above Respiratory normal respiratory effort, lungs clear to auscultation Cardiovascular Rate/Rhythm: regular rate and regular rhythm Gastrointestinal (Abdomen) Inspection/Auscultation: abdomen normal to inspection and + abdominal surgical i ncision (c/d/i) Percussion/Palpation: abdomen soft Fundus firm 2cm down Musculoskeletal nt calves no edema Neurologic grossly normal Psychiatric A+Ox3, euthymic affect Results & Data ([facility]) Vital Signs (Past 12 Hours) Vital Signs Temp Pulse Resp BP Pulse Ox 11/19/21 23:30 97.7 F 82 16 103/66 98 11/19/21 19:30 98.1 F 85 17 106/70 99 11/19/21 18:37 16 99
[2021-11-20 06:40] LABS: Hematocrit (blood only) 27.2 % (37-47); Hemoglobin 8.9 g/dL (12.0-16.0)
[2021-11-20] MEDS: cephALEXin 500 MG CAP PO SCH ×2 (08:56→21:30)
[2021-11-20] MEDS: DOCUSATE SODIUM 100 MG CAP PO SCH ×2 (08:57→20:08)
[2021-11-20] MEDS: SIMETHICONE 80 MG CHEW PO SCH ×4 (08:57→20:08)
[2021-11-20] MEDS: FERROUS SULFATE 325 MG TAB PO SCH (08:57)
[2021-11-20] MEDS: PRENATAL VITAMIN 1 TAB PO SCH (08:57)
[2021-11-20] MEDS: ESCITALOPRAM OXALATE 10 MG TAB PO SCH (08:58)
[2021-11-20] MEDS ORDERED: bisacodyL 5 MG TABEC PO SCH (20:00)
[2021-11-21] MEDS ORDERED: bisacodyL 10 MG SUPP PR PRN (00:47)
[2021-11-21] MEDS: oxyCODONE/ACETAMINOPHEN 5mg/325mg TAB PO PRN ×3 (01:08→11:52)
[2021-11-21] MEDS: IBUPROFEN 600 MG TAB PO PRN ×3 (01:09→11:52)
--- NOTE | 2021-11-21 07:24 | Obstetrical Progress Note ---
Date of Service <Markel Ortega MD - Last Filed: 11/21/21 07:24> November 21, 2021 Assessment & Plan <Markel Ortega MD - Last Filed: 11/21/21 07:24> (1) Encounter for care and examination after delivery: POD 3: stable, routine postoperative management * patient voiding, ambulating without difficulty * pain well controlled on analgesia-short Percocet script sent to pharmacy * tolerating regular diet * * anticipate d/c today <Shanice Hsu MD, FACOG - Last Filed: 11/21/21 07:26> (1) Encounter for care and examination after delivery: Subjective <Markel Ortega MD - Last Filed: 11/21/21 07:24> Post Flaca is a 31 y/o female who is POD 3 following for BMI>40, postdates . She reports feeling well overall this morning. She had an episode of intense, right-sided crampy abdominal pain that improved considerably with dulcolax then milk of magnesia. She still reports some lingering pain, though it is much reduced. Mild to moderate cramping pain well managed on analgesics. Voiding well. Tolerating meals overnight and able to ambulate without assistance or dizziness. + passing gas but denies bowel movement. Lochia is about the same this morning. Currently bottlefeeding but plans to breastfeed as soon as she is able. Review of Systems Denies fever, chills, sweats Denies shortness of breath, difficulty breathing, chest pain, palpitations, chest pressure. Denies breast pain. Denies dysuria. Denies headache or changes in vision. Physical Exam <Markel Ortega MD - Last Filed: 11/21/21 07:24> General: Alert, oriented. No acute distress. Cardiac: Regular rate and rhythm, no murmurs/rubs/gallops. Respiratory: Clear to auscultation bilaterally a/p, no wheezes/rales/rhonchi. No increased work of breathing. Symmetrical chest rise. No respiratory distress. Abdomen: Soft, nontender, nondistended. Bowel sounds present. Uterus: Uterine fundus firm, palpable 1 cm below umbilicus. Surgical scar clean and healing well. Lower Extremities: No lower extremity edema or swelling. No deep calf pain. Norma's negative bilaterally. Results & Data ([facility]) <Markel Ortega MD - Last Filed: 11/21/21 07:24> Vital Signs (Past 12 Hours) Vital Signs Temp Pulse Resp BP Pulse Ox 11/20/21 23:15 36.4 C L 79 18 92/55 L 99 11/20/21 19:50 36.9 C 90 20 101/66 98 <Shanice Hsu MD, FACOG - Last Filed: 11/21/21 07:26> Co-Signing Physician Notes Resident Physician Supervision Note: I interviewed and examined the patient. Discussed with Dr. Ortega and agree with findings and plan as documented in the note. Any exceptions or clarifications are listed here: Doing well. Had some gas pain but improved with meds. Incision c/d/i. Doing well and plan d/c today. Advised to look at incision and discussed what to be concerned about. Instructions given. Documented By: Shanice Hsu MD, FACOG Resident Activity Tracking <Markel Ortega MD - Last Filed: 11/21/21 07:24> Resident Involvement: Resident Care Provided Care Provided: Adult [facility] Medicine
[2021-11-21] MEDS: PRENATAL VITAMIN 1 TAB PO SCH (07:32)
[2021-11-21] MEDS: SIMETHICONE 80 MG CHEW PO SCH ×2 (07:32→11:52)
[2021-11-21] MEDS: DOCUSATE SODIUM 100 MG CAP PO SCH (07:32)
[2021-11-21] MEDS: FERROUS SULFATE 325 MG TAB PO SCH (07:32)
[2021-11-21] MEDS: cephALEXin 500 MG CAP PO SCH (07:33)
[2021-11-21] MEDS: ESCITALOPRAM OXALATE 10 MG TAB PO SCH (07:34)
--- NOTE | 2021-11-22 16:26 | Discharge Summary ---
Date of Service November 22, 2021 Admission HPI Per Admitting Provider Flaca is a 31 y/o female primigravida currently at 40.1 WGA with an RICHIE 11/16/2021 as determined by LMP who is here for induction of labor. Her was complicated by obesity, with BMI >40 at start of . No contractions; + movement; no fluid loss; + bloody show (from catheter removal). Had regular appointments with OB. Labs: 11/18/2021 Blood type: A+ Antibody screen: Negative H.2 Hct: 34.2% WBC: 7.81 Plt: 222 Rubella: Immune RPR: Nonreactive Gonorrhea: Not detected Chlamydia: Not detected HIV: Negative HbSAg: Negative GBS: Negative Other screens: cff-DNA: Low risk for trisomies 13, 18, 21, monosomy X, or triploidy. Low risk for 22q11.2 deletion syndrome CF: Negative SMA: Negative Admission Exam (Per Admitting) Genitourinary Manual OB Exam: + cervical dilation + 4 cm, + cervical effacement + 70% and + station + -2 OB Exam Monitor Tracing: + scalp electrode used, + intra-uterine pressure catheter used (q4-5) and + category I (150/mod/+accel/-decel) Discharge Data Consultations 11/18/21 07:44 Consult Anesthesiology Stat Procedures Performed Operation Date: 11/18/21 23:30 Actual Procedures p Section in - Alona Squires MD Hospital Course (1) Obesity affecting : 31 y/o G1 at 40 2/7 wga presented this morning for elective induction of labor. She had received lynn bulb the evening prior which promptly fell out. On arrival this morning, she was 3cm. She was started on pitocin and received an epidural for pain control. She then underwent AROM however shortly after had decel that required pit discontinuation. After appropriate resolution, pit was planned to restart however IV access was lost and so this was delayed. Upon obtaining IV access again, pitocin was started. FSE and IUPC were placed for more accurate monitoring. This evening, pt noted that she was feeling discouraged regarding induction process. She was counseled regarding options, see note for details, and ultimately she and her opted to proceed with CS. See operative report for details. Postoperative course was uncomplicated and she was discharged home on POD3 Coding Level of Care Code None Diagnoses Obesity affecting O99.210
== END 2021-11-21 13:50 | disposition home or self-care (01) | DRG 788 ==
LOC: 4S1 07:28 → 4S2 11-19 03:47

== ENCOUNTER 2022-11-24 05:22 | Inpatient (IN) ==
--- NOTE | 2022-11-18 10:17 | Anesthesiology Consultation ---
Date of Service November 18, 2022 Assessment & Plan (1) Encounter for pre-operative examination: - COVID screening: Per assessment on 11/18: No known COVID-19 positive contacts or current COVID-19 related symptoms. Travel screen negative. Patient vaccinated. At surgeon discretion if preop Covid testing being done. - S/P primary (11/18/21): SAB at L3/4 (x1 attempt) at [facility] Chart Review Chart Review: bander hand initiated History Surgery Operation Date: 11/24/22 07:30 Proposed Procedures p Section in LD (Delivery of Baby Through Abdominal Incision) with - Loli Carver MD s Bilateral Tubal Ligation Labor & Deliv - Loli Carver MD Height/Weight Height: 5 ft 5 in Weight: 128.367 kg Allergies Allergy/AdvReac Type Severity Reaction Status Date / Time albuterol Allergy Unknown Rash Verified 11/18/22 09:09 bupropion [From Wellbutrin] Allergy Unknown Unknown Verified 11/18/22 09:09 Medications Home Medications Medication Instructions Recorded Confirmed Last Taken blood sugar diagnostic (OneTouch #150 ea 09/22/22 11/10/22 Unknown Verio test strips) blood-glucose meter (OneTouch #1 ea 09/22/22 11/10/22 Unknown Verio Reflect Meter) lancets 33 gauge (OneTouch Delica #150 ea 09/22/22 11/10/22 Unknown Lancets) acetone (urine) test (Ketone Urine #50 ea 09/25/22 11/10/22 Unknown Test strips) ondansetron 4 mg disintegrating 4 mg PO Q8H PRN nausea and 11/12/22 11/18/22 Unknown tablet vomiting #30 tabs escitalopram oxalate 10 mg tablet 10 mg PO HS 11/18/22 11/18/22 Unknown (Lexapro) Past Medical History Medical History (Updated 11/18/22 @ 10:16 by Lesvia Limon) Anxiety Chronic upper back pain Depression Endometriosis dx 2013 History of COVID-19 06/2021, mild symptoms > resolved 08/2022 (home test and PCR [place]), treated w/paxlovid > resolved History of palpitations s/p unremarkable holter monitor 5+ years ago, felt to be r/t anxiety per pt Hx of migraines Mood disorder Morbid obesity due to excess calories Paronychia of left middle finger 11/2021 s/p abx Sleep apnea "mild"- CPAP Past Family History Family History Grandfather (Maternal) , 75 Leukemia Father Hyperlipemia Depression Mother Depression Grandmother (Maternal) Multiple sclerosis Other Polycythemia vera Denies family history of Ovarian cancer Breast cancer Colorectal cancer Past Surgical History Surgical History Family history of reaction to anesthesia siblings > Very sick with anesthesia History of laparoscopy 2013 and 2018- endometriosis, lysis of adhesions Hx of section Hx of tonsillectomy as child Lymphedema of upper extremity following lymphadenectomy right neck lymph nodes removed Nausea and vomiting after administration of anesthetic agent S/P appendectomy at age 20 [place] teeth extracted as teenager Social History Smoking Status: Former smoker tobacco type: cigarettes Smoking cigarettes per day: and vaping Do You Dip or Chew Tobacco: No Smoking End Date: 2020 Hx Alcohol Use: Yes Alcohol type: wine alcohol intake frequency: holidays/special occasions only Hx Substance Use: No substance use type: does not use
[2022-11-24] MEDS ORDERED: LACTATED RINGER'S 1,000 ML IV SCH ×2 (05:30→08:30)
[2022-11-24] MEDS ORDERED: SODIUM CHLORIDE 0.9% 250 ML IV PRN (05:31)
[2022-11-24] MEDS ORDERED: CITRIC ACID/SODIUM CITRATE 15 ML UDC PO SCH (06:00)
[2022-11-24 06:51] LABS: Basophils # (auto) 0.01 K/uL (0-0.2); Basophils % (auto) 0.2 %; Eosinophils # (auto) 0.03 K/uL (0-0.50); Eosinophils % (auto) 0.6 %; Hematocrit (blood only) 32.7 % (37.0-47.0); Hemoglobin 10.8 g/dl (12.0-16.0); Immature Granulocytes # (auto) 0.03 K/uL (0.01-0.20); Immature Granulocytes % (auto) 0.6 %; Lymphocytes # (auto) 1.33 K/uL (1.2-3.4); Lymphocytes % (auto) 25.1 %; Mean Corpuscular Hemoglobin 28.1 pg (25.0-34.0); Mean Corpuscular Volume 84.9 fL (80.0-100.0); Mean Platelet Volume 11.3 fL (9.4-12.4); Monocytes # (auto) 0.41 K/uL (0.11-0.59); Monocytes % (auto) 7.8 %; Neutrophils # (auto) 3.48 K/uL (1.40-6.50); Neutrophils % (auto) 65.7 %; Platelet Count 183 K/uL (130-400); RDW Coefficient of Variation 13.9 % (11.5-14.5); RDW Standard Deviation 43.5 fL (36.4-46.3); Red Blood Count 3.85 M/uL (4.20-5.40); White Blood Count 5.29 K/ul (4.8-10.8)
[2022-11-24] MEDS ORDERED: MoRPHine SULFATE PF 1 MG/ML 10 ML AMP/VIAL ONE (07:10)
--- NOTE | 2022-11-24 07:24 | History & Physical Bridge Note ---
Date of Service November 24, 2022 History & Physical Bridge Note I have examined the patient, reviewed the History & Physical and in the interval since the performance of the History & Physical I have noted the following changes of clinical significance: no changes noted
[2022-11-24] MEDS ORDERED: SUCCINYLCHOLINE CHLORIDE 20 MG/ML 10 ML VIAL IV ONE (08:08)
[2022-11-24] MEDS ORDERED: PROPOFOL IV EMULSION 10 MG/ML 20 ML VIAL IV ONE (08:08)
[2022-11-24] MEDS ORDERED: ePHEDrine sulfate 50 MG/ML SYR ONE (08:09)
[2022-11-24] MEDS ORDERED: METOCLOPRAMIDE HCL INJ 5 MG/ML 2 ML VIAL ONE (08:09)
[2022-11-24] MEDS ORDERED: PHENYLEPHRINE 100MCG/ML 5ML SYR ONE (08:09)
[2022-11-24] MEDS ORDERED: ONDANSETRON INJ 2 MG/ML 2 ML VIAL ONE (08:09)
[2022-11-24] MEDS ORDERED: OXYTOCIN 10 UNITS/ML 10ML VIAL ONE (08:09)
[2022-11-24] MEDS ORDERED: KETOROLAC 30 MG/ML VIAL IV PRN (08:21)
[2022-11-24] MEDS ORDERED: diphenhydrAMINE 50 MG/ML VIAL IV PRN (08:21)
[2022-11-24] MEDS ORDERED: MoRPHine SULFATE PF 1 MG/ML 10 ML AMP/VIAL INT SPINAL ONE (08:21)
[2022-11-24] MEDS ORDERED: NALBUPHINE HCL INJ 10 MG/ML AMP IV PRN (08:21)
[2022-11-24] MEDS ORDERED: NALOXONE HCL 0.08 MG in SYRINGE 1.8 ML IV PRN (08:21)
[2022-11-24] MEDS ORDERED: MoRPHine SULFATE 2 MG/ML CARP IV PRN (08:21)
[2022-11-24] MEDS ORDERED: NALOXONE HCL 0.4 MG/1 ML VIAL/CARP IV PRN (08:21)
[2022-11-24] MEDS ORDERED: ONDANSETRON INJ 2 MG/ML 2 ML VIAL IV PRN (08:21)
[2022-11-24] MEDS ORDERED: PROMETHAZINE HCL 12.5 MG in SODIUM CHLORIDE 0.9% 50 ML IV PRN (08:21)
[2022-11-24] MEDS ORDERED: NALOXONE HCL 1 MG in SODIUM CHLORIDE 0.9% 1000ML 1,000 ML IV PRN (08:21)
[2022-11-24] MEDS ORDERED: LACTATED RINGER'S 500 ML IV PRN (08:21)
[2022-11-24] MEDS ORDERED: ePHEDrine sulfate 50 MG/ML AMP IV PRN (08:21)
[2022-11-24] MEDS ORDERED: DC INTRASPINAL MORPHINE SCH (08:30)
[2022-11-24] MEDS ORDERED: SODIUM CHLORIDE 0.9% 1000ML 1,000 ML IV SCH (08:30)
[2022-11-24] MEDS ORDERED: MAGNESIUM HYDROXIDE SUSP 30 ML UDC PO PRN (08:30)
[2022-11-24] MEDS ORDERED: HYDROCORTISONE ACETATE 25 MG SUPP PR PRN (08:30)
[2022-11-24] MEDS ORDERED: SENNA 8.6 MG TAB PO PRN (08:30)
[2022-11-24] MEDS ORDERED: BENZOCAINE 20% AER SPR 82.5 GM CAN EXT PRN (08:30)
[2022-11-24] MEDS ORDERED: NO NARCOTICS OR SEDATIVES SCH (08:30)
--- NOTE | 2022-11-24 08:51 | Operative Report ---
PG Post Operative Report Pre & Post Diagnosis Operation Date: 11/24/22 07:30 Prior section Desires sterilization I identified the patient and participated in the time-out.: Yes Procedure Operation Date: 11/24/22 07:30 Repeat Low Transverse Section Bilateral salpingectomy for sterilization Surgeon Loli Carver MD Newspaper Peddler DO Aracelis. Haleylyguclovis, MS2. Estimated Blood Loss 500 Findings Consistent with Post-Op Diagnosis Specimens Placenta, cord blood Anesthesia Type Spinal Complications none Disposition Accompanied Patient To Recovery: Yes Description of Procedure The patient was placed operating table in the supine position with a leftward tilt. She was prepped and draped in standard sterile fashion. The anesthetic was tested and found to be adequate. A time-out was held, identifying correct patient, procedure, positioning and preoperative antibiotics. There were no concerns. A Pfannenstiel skin incision was made with a knife and taken down to the underlying layer of fascia. The fascia was incised in the midline with the knife and taken out laterally with scissors. The superior edge of the fascial incision was grasped, elevated and dissected off the underlying rectus both superiorly and inferiorly. The muscles were bluntly in the midline. The peritoneum was entered bluntly. The incision was then stretched. The bladder retractor was placed. The vesicouterine peritoneum was identified, entered with scissors and taken out laterally with scissors. The bladder flap was created digitally. A hysterotomy incision was created transversely in the lower uterine segment, final entry being accomplished in a blunt manner with the case loader operator's fingers. Clear amniotic fluid was encountered. The case loader operator's hand was used to elevate the head to the hysterotomy. The head was delivered using mild fundal pressure, and the shoulders and body followed without difficulty. The cord was clamped and cut and the was then handed off to the awaiting coin machine servicer repairer. Cord blood was obtained. The placenta was Manually extracted. The uterus was exteriorized and cleared of all clot and debris with moistened laparotomy sponges. The hysterotomy incision was repaired in two layers, the first in a running locked layer, the second in an imbricating layer. The ovaries and tubes were seen to be normal bilaterally. The tubes were each elevated and excised using ligasure electrocautery, being amputated at the cornua, and were sent for pathology. The uterus was gently replaced in the abdomen, and the gutters were cleared of clot and debris. A final inspection of the hysterotomy revealed good hemostasis. The rectus muscles were allowed to reapproximate naturally. The fascia was then reapproximated with 1 Vicryl in a running nonlocked manner. The fascia was examined and found to be free of defect following closure. The subcutaneous tissue was copiously irrigated and reapproximated with 0-chromic, then the skin edges were closed with 4-0 monocryl in a subcuticular fashion. A dermabond dressing was applied. The lynn was found to be draining clear yellow urine at completion of the procedure. I attest to the content of the Intraoperative Record and any orders documented therein. Any exceptions are noted below. I attest to the content of the Intraoperative Record and any orders documented therein. Any exceptions are noted below. OB Procedure Charges [id number] Add on Tubal for C/S
[2022-11-24] MEDS ORDERED: DIPHTHERIA/TETANUS/PERTUSSIS 0.5mL SYR/VIAL (Age 7+yrs) IM ONE (09:00)
--- NOTE | 2022-11-24 11:15 | Anesthesiology Progress Note ---
Date of Service November 24, 2022 Anesthesia Post Procedure Vital Signs Vital Signs: Temp Pulse Resp BP Pulse Ox 11/24/22 09:45 16 11/24/22 09:45 16 11/24/22 09:35 18 11/24/22 09:25 16 11/24/22 09:15 16 11/24/22 09:05 16 11/24/22 08:55 16 11/24/22 08:45 36.5 C 16 11/24/22 11:02 75 126/58 L 97 11/24/22 10:57 75 123/57 L 98 11/24/22 10:52 78 123/58 L 98 11/24/22 10:47 75 120/56 L 97 11/24/22 10:42 72 97 11/24/22 10:43 74 119/56 L 11/24/22 10:41 74 94 11/24/22 10:37 93 H 119/58 L 100 11/24/22 10:36 74 93 11/24/22 10:32 84 106/53 L 99 11/24/22 10:29 77 94 11/24/22 10:27 75 121/56 L 96 11/24/22 10:22 75 117/54 L 98 11/24/22 10:17 76 117/55 L 99 11/24/22 10:12 82 126/59 L 100 11/24/22 10:07 82 116/55 L 100 11/24/22 10:02 97 11/24/22 10:02 73 11/24/22 10:02 68 111/56 L 11/24/22 09:57 78 108/53 L 100 11/24/22 09:52 78 112/56 L 100 11/24/22 09:47 76 109/54 L 100 11/24/22 09:42 73 108/54 L 99 11/24/22 09:37 75 108/56 L 98 11/24/22 09:32 75 107/54 L 100 11/24/22 09:27 80 106/53 L 100 11/24/22 09:22 74 108/53 L 100 11/24/22 09:17 82 110/53 L 100 11/24/22 09:12 76 103/51 L 100 11/24/22 09:07 79 100 11/24/22 09:08 80 104/51 L 11/24/22 09:06 75 87 L 11/24/22 09:03 96 H 98/55 L 11/24/22 09:02 82 97 11/24/22 08:57 100 11/24/22 08:57 89 11/24/22 08:57 88 90 11/24/22 08:52 68 100 11/24/22 08:53 68 108/57 L 11/24/22 08:47 75 114/54 L 100 11/24/22 05:44 82 115/69 11/24/22 05:46 36.7 C 18 Transfer of Care Handoff Completed per policy Notes Mental Status: alert / awake / arousable Patient Amnestic to Procedure: Yes Nausea / Vomiting: adequately controlled Pain: adequately controlled Airway Patency, RR, SpO2: stable & adequate BP & HR: stable & adequate Hydration State: stable & adequate Neuraxial Anesthesia: was administered and sensory block is resolving Anesthetic Complications: no major complications apparent
[2022-11-24] MEDS: OXYTOCIN 20 UNITS in LACTATED RINGER'S 1,000 ML IV SCH ×2 (11:30→20:34)
[2022-11-24] MEDS: SIMETHICONE 80 MG CHEW PO SCH ×2 (17:22→20:51)
[2022-11-24] MEDS: IBUPROFEN 600 MG TAB PO PRN (17:59)
[2022-11-24] MEDS: DOCUSATE SODIUM 100 MG CAP PO SCH (20:50)
[2022-11-24] MEDS: ESCITALOPRAM OXALATE 10 MG TAB PO SCH (20:51)
[2022-11-25] MEDS ORDERED: diphenhydrAMINE 50 MG/ML VIAL IV PRN (02:21)
[2022-11-25] MEDS ORDERED: MEPERIDINE HCL 50 MG/ML CARP IV PRN (02:21)
[2022-11-25] MEDS ORDERED: ONDANSETRON INJ 2 MG/ML 2 ML VIAL IV PRN (02:21)
[2022-11-25] MEDS ORDERED: PROMETHAZINE HCL 25 MG in SODIUM CHLORIDE 0.9% 50 ML IV PRN (02:21)
[2022-11-25] MEDS ORDERED: KETOROLAC 30 MG/ML VIAL IV PRN (02:21)
[2022-11-25] MEDS: oxyCODONE/ACETAMINOPHEN 5mg/325mg TAB PO PRN ×5 (02:27→22:05)
--- NOTE | 2022-11-25 06:55 | Obstetrical Progress Note ---
Date of Service <Risa Pa DO - Last Filed: 11/25/22 07:49> November 25, 2022 Assessment & Plan <Risa Pa DO - Last Filed: 11/25/22 07:49> (1) Status post section: Dooley is out , continue OOB and ambulation and then progress diet as tolerated <Juanjose Bronson MD - Last Filed: 11/25/22 08:21> (1) Status post section: Subjective <Risa Joana DO Thierno - Last Filed: 11/25/22 07:49> Flaca is a 32 y/o female who is POD #1 following delivery at 39 2/7 weeks. She reports feeling well overall this morning. Mild abdominal cramping, pain well managed on analgesics. Voiding. Tolerating meals overnight and able to ambulate some. Is passing gas. Has some persistent lochia with some improvement this morning. Currently breast feeding. Notes some diffuse itching. Review of Systems Denies fever, chills, sweats Denies shortness of breath, difficulty breathing, chest pain, palpitations, chest pressure. Denies breast pain. Denies dysuria. Denies headache or changes in vision. Physical Exam <Risa Pa DO - Last Filed: 11/25/22 07:49> General: Alert, oriented. No acute distress. Cardiac: Regular rate and rhythm, no murmurs/rubs/gallops. Respiratory: Clear to auscultation bilaterally a/p, no wheezes/rales/rhonchi. No increased work of breathing. Symmetrical chest rise. No respiratory distress. Abdomen: Soft, nontender, nondistended. Uterus: Uterine fundus firm, palpable 2 cm below umbilicus. Surgical scar clean and healing well. Lower Extremities: No lower extremity edema or swelling. Results & Data <Risa Pa DO - Last Filed: 11/25/22 07:49> Vital Signs (Past 12 Hours) Vital Signs Temp Pulse Resp BP Pulse Ox O2 Del Method 11/25/22 03:26 36.8 C 79 14 91/64 L 98 Room Air 11/25/22 02:20 14 95 11/25/22 01:04 16 98 11/25/22 00:34 14 98 11/24/22 23:50 16 94 11/24/22 23:50 36.9 C 76 16 98/63 L 94 Room Air 11/24/22 22:09 16 97 11/24/22 21:05 16 100 11/24/22 19:08 16 97 11/24/22 20:00 37.0 C 80 14 128/69 97 Room Air 11/24/22 20:00 14 97 <Juanjose Bronson MD - Last Filed: 11/25/22 08:21> Co-Signing Physician Notes patient seen and evaluated with resident and agree with the above findings and plan. Patient stable for discharge. Resident Activity Tracking <Risa Pa DO - Last Filed: 11/25/22 07:49> Resident Involvement: Resident Care Provided Care Provided: OB Delivery (post )
[2022-11-25] MEDS: DOCUSATE SODIUM 100 MG CAP PO SCH ×2 (07:43→20:05)
[2022-11-25] MEDS: SIMETHICONE 80 MG CHEW PO SCH ×5 (07:43→20:07)
[2022-11-25] MEDS: FERROUS SULFATE 325 MG TAB PO SCH (07:43)
[2022-11-25] MEDS: IBUPROFEN 600 MG TAB PO PRN ×4 (07:43→20:06)
[2022-11-25] MEDS: PRENATAL VITAMIN 1 TAB PO SCH (07:43)
[2022-11-25] MEDS: diphenhydrAMINE Capsule 25 MG CAP PO PRN ×2 (07:43→11:09)
[2022-11-25 08:25] LABS: Basophils # (auto) 0.01 K/uL (0-0.2); Basophils % (auto) 0.1 %; Eosinophils # (auto) 0.06 K/uL (0-0.50); Eosinophils % (auto) 0.9 %; Hematocrit (blood only) 30.8 % (37.0-47.0); Immature Granulocytes # (auto) 0.03 K/uL (0.01-0.20); Immature Granulocytes % (auto) 0.4 %; Lymphocytes # (auto) 1.33 K/uL (1.2-3.4); Mean Corpuscular Hemoglobin 27.9 pg (25.0-34.0); Mean Corpuscular Hgb Conc 32.5 g/dL (32.0-36.0); Mean Platelet Volume 11.3 fL (9.4-12.4); Monocytes % (auto) 7.1 %; Neutrophils # (auto) 5.07 K/uL (1.40-6.50); Neutrophils % (auto) 72.5 %; Platelet Count 176 K/uL (130-400); RDW Coefficient of Variation 14.3 % (11.5-14.5); RDW Standard Deviation 44.4 fL (36.4-46.3); Red Blood Count 3.58 M/uL (4.20-5.40)
[2022-11-25] MEDS ORDERED: bisacodyL 5 MG TABEC PO SCH (20:00)
[2022-11-25] MEDS: ESCITALOPRAM OXALATE 10 MG TAB PO SCH (20:49)
[2022-11-26] MEDS: IBUPROFEN 600 MG TAB PO PRN ×2 (01:18→08:31)
--- NOTE | 2022-11-26 06:04 | Obstetrical Progress Note ---
Date of Service <Risa Pa - Last Filed: 11/26/22 07:07> November 26, 2022 Assessment & Plan <Risa PaDO - Last Filed: 11/26/22 07:07> (1) Status post section: continue OOB, ambulation, diet as tolerated - 6 week post f/u - Discharge instructions reviewed <Hailey Warren MD, FACOG - Last Filed: 11/26/22 07:59> (1) Status post section: Subjective <Risa PaDO - Last Filed: 11/26/22 07:07> Flaca is a 32 y/o female who is POD #2 following delivery at 39 2/7 weeks. She reports feeling well overall this morning. Moderate abdominal cramping, pain well managed on analgesics. Voiding. Tolerating meals overnight and able to ambulate some. Is passing gas and had a bowel movement. Has some persistent lochia with some improvement this morning. Currently breast feeding. Review of Systems Denies fever, chills, sweats Denies shortness of breath, difficulty breathing, chest pain, palpitations, chest pressure. Denies breast pain. Denies dysuria. Denies headache or changes in vision. Physical Exam <Risacedrick PaDO - Last Filed: 11/26/22 07:07> General: Alert, oriented. No acute distress. Cardiac: Regular rate and rhythm, no murmurs/rubs/gallops. Respiratory: Clear to auscultation bilaterally a/p, no wheezes/rales/rhonchi. No increased work of breathing. Symmetrical chest rise. No respiratory distress. Abdomen: Soft, nontender, nondistended. Uterus: Uterine fundus firm, palpable 2 cm below umbilicus. Surgical scar clean and healing well. Lower Extremities: No lower extremity edema or swelling. Results & Data <Risa SRach ThiernoDO - Last Filed: 11/26/22 07:07> Vital Signs (Past 12 Hours) Vital Signs Temp Pulse Resp BP Pulse Ox O2 Del Method 11/26/22 00:00 36.7 C 75 16 99/63 L 97 Room Air <Hailey Warren MD, FACOG - Last Filed: 11/26/22 07:59> Co-Signing Physician Notes Resident Physician Supervision Note: I was present with Dr. Pa during the history and exam. I discussed the case with the resident and agree with the findings and plan as documented in the note. Any exceptions or clarifications are listed here: stable doing well. ready to go home. abd soft ff 3 down nt, incision c/d/i. ext nt calves. pod #2, checked on papdmp and no issues. plan 6wk pp check. breast, rh pos, ri. had tubal. Documented By: Hailey Warren MD, FACOG Resident Activity Tracking <Risa Pa, DO - Last Filed: 11/26/22 07:07> Resident Involvement: Resident Care Provided Care Provided: OB Delivery (post )
[2022-11-26 07:12] LABS: Hematocrit (blood only) 31.6 % (37.0-47.0)
[2022-11-26] MEDS: SIMETHICONE 80 MG CHEW PO SCH (08:30)
[2022-11-26] MEDS: oxyCODONE/ACETAMINOPHEN 5mg/325mg TAB PO PRN (08:30)
[2022-11-26] MEDS ORDERED: bisacodyL 10 MG SUPP PR PRN (08:30)
[2022-11-26] MEDS: PRENATAL VITAMIN 1 TAB PO SCH (08:30)
[2022-11-26] MEDS: DOCUSATE SODIUM 100 MG CAP PO SCH (08:30)
[2022-11-26] MEDS: FERROUS SULFATE 325 MG TAB PO SCH (08:30)
[2022-11-26] MEDS ORDERED: CALCIUM CARBONATE 500 MG CHEWABLE TAB PO PRN ×3 (09:02→09:59)
[2022-11-26] MEDS ORDERED: Nursing to Pharmacy Communication SCH (09:45)
--- NOTE | 2022-11-28 08:41 | Discharge Summary ---
Date of Service November 28, 2022 Discharge Data Consultations 11/24/22 05:25 Consult Anesthesiology Stat Procedures Performed Operation Date: 11/24/22 07:30 Actual Procedures p Section in LD - Loli Carver MD Hospital Course (1) Previous delivery affecting , antepartum: Patient underwent uncomplicated ; see op report for details. Discharged home after uncomplicated recovery with typical follow up plan at 6 weeks, and pain medication provided for use at home. Coding Level of Care Code None Diagnoses Previous delivery affecting , antepartum O34.219
== END 2022-11-26 11:10 | disposition home or self-care (01) | DRG 785 ==
LOC: 4S1 05:22 → 4E2 12:05 → EDSTATUS 11-28 07:30